=== PATIENT | male | born 1955 | race Caucasian/White ===

== ENCOUNTER 2017-03-31 14:01 | Emergency (ER) | payer BC ==
[2017-03-31] MEDS ORDERED: Ketorolac INJ* 60 MG/2 ML VIAL IM ONE (15:10)
--- NOTE | 2017-03-31 15:21 | ED ---
Neck Pain - HPI Summary HPI Summary: Patient presents with one week of neck pain that began after he worked with some fence posts and on his car over last weekend. He has applied ice and saw his PCP who said he had strained a muscle. He only slept three hours last night so he came in for pain management. He denies functional deficits in his arm, but can have transient tingling on top of his right forearm. No warmth, swelling or fevers. - History of Current Complaint Chief Complaint: EDNeckComplaint Stated Complaint: NECK,SHOULDER RIGHT ARM PAIN Time Seen by Provider: 03/31/17 14:51 Hx Obtained From: Patient Onset/Duration Of Injury/Symptoms: Weeks - 1 Mechanism Of Injury: No Known Trauma Timing: Constant Onset/Duration: Gradual Onset, Started weeks ago - 1, Still Present Severity Initially: Mild Severity Currently: Moderate Pain Intensity: 6 Character: Aching, Spasmotic Aggravating Factors: Position Alleviating Factors: Nothing Associated Signs & Symptoms: Positive: Negative - Allergies/Home Medications Allergies/Adverse Reactions: Allergies Allergy/AdvReac Type Severity Reaction Status Date / Time No Known Allergies Allergy Verified 09/04/12 11:52 PMH/Surg Hx/FS Hx/Imm Hx Cardiovascular History: Reports: Hx Hypertension - TAKING MEDICATION Denies: Hx Pacemaker/ICD Respiratory History: Denies: Hx Asthma, Hx Chronic Obstructive Pulmonary Disease (COPD), Other Respiratory Problems/Disorders Sensory History: Reports: Hx Contacts or Glasses - GLASSES Denies: Hx Hearing Aid Opthamlomology History: Reports: Hx Contacts or Glasses - GLASSES - Surgical History Surgery Procedure, Year, and Place: FULL MOUTH EXTRACTION [facility] Hx Anesthesia Reactions: No Infectious Disease History: No Infectious Disease History: Denies: Traveled Outside the [place] in Last 30 Days - Family History Known Family History: Positive: None - Social History Occupation: Retired Lives: With Family Alcohol Use: None Substance Use Type: Reports: None Hx Tobacco Use: No Smoking Status (MU): Never Smoked Tobacco Review of Systems Positive: Myalgia. Negative: Edema Negative: Bruising Negative: Weakness, Paresthesia, Numbness All Other Systems Reviewed And Are Negative: Yes Physical Exam Triage Information Reviewed: Yes Vital Signs On Initial Exam: Initial Vitals Temp Pulse Resp BP Pulse Ox 97.8 F 81 16 162/83 93 03/31/17 14:03 03/31/17 14:03 03/31/17 14:03 03/31/17 14:03 03/31/17 14:03 Vital Signs Reviewed: Yes Appearance: Positive: Well-Appearing, Pain Distress, Obese Skin: Positive: Warm, Skin Color Reflects Adequate Perfusion, Dry, Soft Head/Face: Positive: Normal Head/Face Inspection Eyes: Positive: EOMI, [place], Conjunctiva Clear ENT: Positive: Hearing grossly normal Neck: Positive: Supple, No Lymphadenopathy, Tenderness @ - right sternocleidomastoid muscle Respiratory/Lung Sounds: Positive: Breath Sounds Present Cardiovascular: Positive: RRR Musculoskeletal: Positive: Strength/ROM Intact, Pain @ - TTP right sternocladomastoid muscle Neurological: Positive: Sensory/Motor Intact, Alert, Oriented to Person Place, Time, CN Intact II-III, NV Bundle Intact Distally Psychiatric: Positive: Affect/Mood Appropriate AVPU Assessment: Alert Diagnostics - Vital Signs Vital Signs Temp Pulse Resp BP Pulse Ox 03/31/17 14:03 97.8 F 81 16 162/83 93 - Laboratory Lab Statement: Any lab studies that have been ordered have been reviewed, and results considered in the medical decision making process. Neck Course/Dx - Diagnoses Differential Dx/HQI/PQRI: Positive: Adenitis, Cervical Fracture, Sprain, Strain , Torticollis, Trauma Provider Diagnoses: Neck muscle strain Discharge - Discharge Plan Condition: Stable Disposition: HOME Prescriptions: Cyclobenzaprine TAB* [Flexeril 10 MG TAB*] 10 mg PO TID PRN #15 tab PRN Reason: Pain Patient Education Materials: Neck Pain (ED) Referrals: Gwyn Watkins MD [Primary Care Provider] - Additional Instructions: Please use the muscle relaxer as needed in combination with Ibuprofen 600mg three times daily with meals for the next 3-5 days. Apply heat to your neck and rest. Follow-up with your primary care provider if symptoms do not begin to improve in the next 5-7 days. Return to the emergency department if symptoms worsen.
[2017-03-31 15:33] VITALS: BP 160/73
== END 2017-03-31 15:33 | disposition home or self-care (01) ==
LOC: ED 14:01
DX: S13.4XXA Sprain of ligaments of cervical spine, initial encounter (principal); X58.XXXA Exposure to other specified factors, initial encounter; Y92.9 Unspecified place or not applicable; I10 Essential (primary) hypertension
CPT/HCPCS: 96372; 99281; J1885

== ENCOUNTER 2018-11-29 10:00 | Emergency (ER) | payer MEDICARE ==
--- NOTE | 2018-11-29 11:34 | ED ---
Lower Extremity - HPI Summary HPI Summary: A 63 y/o male presents to [facility] with a chief complaint of right leg pain which has been worsening since 10/25/19. Per triage note, Pt was working outside on Tuesday kneeling on a piece of wood with Right leg, pt states that the pain in right leg/rucker/knee has steadily increased since Tuesday and now it feels like there is something hard in his left knee when he kneels down. The patient reports he was kneeling for about 30 mins to cover something up before the snowstorm. He denies any ankle or hip pain, fever, chills, erythema (eyes), sore throat, chest pain, shortness of breath, cough, abdominal pain, vomiting, nausea, dysuria, hematuria, myalgia, and dizziness. He reports taking aspirin. He denies psoriasis but has a rash on arms and legs which doesnt bother him. He reports that he is able to walk around fine. He denies any fall. He takes aspirin and currently rates his pain as a 3/10 but his pain worsens at night. The patient reports some swelling below his knees and reports that he has had fluid below his knees before. - History of Current Complaint Chief Complaint: EDExtremityLower Stated Complaint: RIGHT LEG PAIN Time Seen by Provider: 11/29/18 10:38 Hx Obtained From: Patient Mechanism Of Injury: Other - kneeling on plywood Onset of Pain: Days Onset/Duration: Still Present Severity Initially: Moderate Severity Currently: Moderate Pain Intensity: 3 Pain Scale Used: 0-10 Numeric Timing: Constant, Lasting Days Location: Is Discrete @ - right leg Associated Signs And Symptoms: Positive: Redness. Negative: Fever Aggravating Factor(s): Nothing Alleviating Factor(s): Nothing - Allergies/Home Medications Allergies/Adverse Reactions: Allergies Allergy/AdvReac Type Severity Reaction Status Date / Time No Known Allergies Allergy Verified 11/29/18 10:47 Home Medications: Home Medications Amlodipine Besylate [Norvasc] 10 mg PO DAILY 11/29/18 [History Confirmed ] Dapagliflozin 10 mg Tab (Nf) [Farxiga] 10 mg PO DAILY 11/29/18 [History Confirmed 11/29/18] Dutasteride 1 cap PO DAILY 11/29/18 [History Confirmed 11/29/18] Rosuvastatin Calcium 20 mg PO BEDTIME 11/29/18 [History Confirmed 11/29/18] PMH/Surg Hx/FS Hx/Imm Hx Cardiovascular History: Reports: Hx Hypertension - TAKING MEDICATION Denies: Hx Pacemaker/ICD Respiratory History: Denies: Hx Asthma, Hx Chronic Obstructive Pulmonary Disease (COPD), Other Respiratory Problems/Disorders Sensory History: Reports: Hx Contacts or Glasses - GLASSES Denies: Hx Hearing Aid Opthamlomology History: Reports: Hx Contacts or Glasses - GLASSES - Surgical History Surgery Procedure, Year, and Place: FULL MOUTH EXTRACTION [facility] Hx Anesthesia Reactions: No Infectious Disease History: No Infectious Disease History: Denies: Traveled Outside the [place] in Last 30 Days - Family History Known Family History: Negative: Cardiac Disease, Hypertension, Diabetes - Social History Alcohol Use: None Substance Use Type: Reports: None Hx Tobacco Use: No Smoking Status (MU): Never Smoked Tobacco Review of Systems Negative: Fever, Chills Negative: Erythema Negative: Sore Throat Negative: Chest Pain Negative: Shortness Of Breath, Cough Negative: Abdominal Pain, Vomiting, Nausea Negative: dysuria, hematuria Positive: Myalgia - right leg pain, Edema Positive: Rash Neurological: Negative - dizziness All Other Systems Reviewed And Are Negative: Yes Physical Exam - Summary Physical Exam Summary: Constitutional: Well-developed, Well-nourished, Alert. (-) Distressed Skin: Warm, Dry HENT: Normocephalic; Atraumatic Eyes: Conjunctiva normal Neck: Musculoskeletal ROM normal neck. (-) JVD, (-) Stridor, (-) Tracheal deviation Cardio: Rhythm regular, rate normal, Heart sounds normal; Intact distal pulses; The pedal pulses are 2+ and symmetric. Radial pulses are 2+ and symmetric. (-) Murmur Pulmonary/Chest wall: Effort normal. (-) Respiratory distress, (-) Wheezes, (-) Rales Abd: Soft, (-) epigastric tenderness, (-) Distension, (-) Guarding, (-) Rebound Musculoskeletal: mild infrapatellar edema, no induration fluctuant edema, full ROM no bony tenderness Lymph: (-) Cervical adenopathy Neuro: Alert, Oriented x3 Psych: Mood and affect Normal Triage Information Reviewed: Yes Vital Signs On Initial Exam: Initial Vitals Temp Pulse Resp BP Pulse Ox 98.4 F 95 22 164/90 95 11/29/18 10:02 11/29/18 10:02 11/29/18 10:02 11/29/18 10:02 11/29/18 10:02 Vital Signs Reviewed: Yes Diagnostics - Vital Signs Vital Signs Temp Pulse Resp BP Pulse Ox 11/29/18 10:02 98.4 F 95 22 164/90 95 - Laboratory Lab Statement: Any lab studies that have been ordered have been reviewed, and results considered in the medical decision making process. - Radiology knee x-ray Radiology Interpretation Completed By: Radiologist Summary of Radiographic Findings: Soft tissue swelling superficial to the patella and infrapatellar tendon. ED physician has reviewed this imaging report. Lower Extremity Course/Dx - Course Course Of Treatment: A 63 y/o male presents to [facility] with a chief complaint of right leg pain which has been worsening since 10/25/19 after kneeling on a piece of plywood. The physical exam revealed mild infrapatellar edema, no induration fluctuant edema, full ROM no bony tenderness. Knee x-ray impression: Soft tissue swelling superficial to the patella and infrapatellar tendon. In the ED course the patient was given Tylenol PO. The patient will be discharged with a prescription for Naprosyn. The patient was instucted to return to the ED for any changing or worsening symptoms. The patient is agreeable with this plan. - Diagnoses Provider Diagnoses: Knee contusion Discharge - Sign-Out/Discharge Documenting (check all that apply): Patient Departure - DC - Discharge Plan Condition: Stable Disposition: HOME Prescriptions: Naproxen TAB* [Naprosyn 250 mg TAB*] 500 mg PO Q8H PRN #30 tab PRN Reason: Pain - Moderate To Severe Referrals: Gwyn Watkins MD [Primary Care Provider] - (1-2 days) Additional Instructions: RETURN TO THE EMERGENCY DEPARTMENT FOR CHANGING OR WORSENING SYMPTOMS - Billing Disposition and Condition Condition: STABLE Disposition: Home - Attestation Statements Document Initiated by Gopalibe: Yes Documenting Scribe: Ralph Grider Provider For Whom Alejandra is Documenting (Include Credential): Kp Costa MD Scribe Attestation: Ralph Hurley scribed for Kp Costa MD on 11/29/18 at 2043. Scribe Documentation Reviewed: Yes Provider Attestation: The documentation as recorded by the Ralph jerry accurately reflects the service I personally performed and the decisions made by me, Kp Costa MD Status of Scribe Document: Viewed
[2018-11-29] MEDS ORDERED: Acetaminophen TAB* 325 MG PO ONE (11:42)
[2018-11-29 11:53] VITALS: BP 123/83
== END 2018-11-29 11:52 | disposition home or self-care (01) ==
LOC: ED 10:00
DX: S80.01XA Contusion of right knee, initial encounter (principal); I10 Essential (primary) hypertension; X58.XXXA Exposure to other specified factors, initial encounter; Y92.9 Unspecified place or not applicable
CPT/HCPCS: 99282; A9270-GY

== ENCOUNTER 2021-08-04 07:30 | Observation (INO) ==
[~2021-08-04 07:30] MED LIST: Buffered Lidocaine 1% SYRIN 1 ml INTRADERM ONE; DiMENhydriNATE IV 50 mg/ml 1 ml VIAL IV PUSH ONE; HYDROcodone/ACETAMIN 5/325 mg TAB PO PRN; Lactated Ringers 1000 ml BAG 1,000 ML IV SCH; Metoclopramide 5 MG/ML VIAL (10 mg) IV PRN; Naloxone 0.4 mg VIAL 0.4 mg/ml 1 ml VIAL IV PRN; Ondansetron 4 mg VIAL 2 MG/ML 2 ml VIAL IV PRN; ROPIVACAINE 5 MG/ML 30 ML BTL (0.5%) ONE; fentaNYL 100 mcg/2 ml 50 MCG/ML VIAL IV PRN
[2021-08-04] MEDS ORDERED: DiMENhydriNATE IV 50 mg/ml 1 ml VIAL ONE (09:24)
[2021-08-04] MEDS ORDERED: ceFAZolin 2 GM in NS PREMIX 2 GM/100 ML BAG IVPB ONE (09:24)
[2021-08-04] MEDS ORDERED: ceFAZolin 1 GM ADVAN 1 GM ADDV.VIAL IVPB ONE (09:24)
[2021-08-04] MEDS ORDERED: Buffered Lidocaine 1% SYRIN 1 ml INTRADERM ONE (09:24)
[2021-08-04] MEDS ORDERED: fentaNYL 100 mcg/2 ml 50 MCG/ML VIAL ONE (09:26)
[2021-08-04] MEDS ORDERED: Midazolam 2 mg/2 ml VIAL 1 mg/ml 2 ml VIAL (2 mg) ONE (09:26)
[2021-08-04] MEDS ORDERED: Lidocaine 2% PF 5 ML VIAL ONE (09:35)
[2021-08-04] MEDS ORDERED: Phenylephrine IV 10 MG/ML 1 ml VIAL ONE ×2 (09:35→09:38)
[2021-08-04] MEDS ORDERED: Bupivacaine 0.5% SDV PF 30ML VIAL ONE (10:51)
[2021-08-04] MEDS ORDERED: Propofol 10 MG/ML 20 ML BTL ONE ×2 (12:53→13:56)
[2021-08-04] MEDS ORDERED: Lactulose 30 ml UDC PO PRN (12:59)
[2021-08-04] MEDS ORDERED: Morphine 2 MG/ML SYRINGE IV PRN (12:59)
[2021-08-04] MEDS ORDERED: diPHENhydraMINE IV 50 MG/ML 1 ml VIAL (BENADRYL) IV PRN (12:59)
[2021-08-04] MEDS ORDERED: Ondansetron 4 mg VIAL 2 MG/ML 2 ml VIAL IV PRN (12:59)
[2021-08-04] MEDS ORDERED: diPHENhydraMINE 25 mg TAB PO PRN (12:59)
[2021-08-04] MEDS ORDERED: Magnesium Hydroxide LIQ 30 ML UDC PO PRN (12:59)
[2021-08-04] MEDS ORDERED: Ondansetron ODT 4 mg TAB 4 MG TAB PO PRN (12:59)
[2021-08-04] MEDS ORDERED: Lactated Ringers 1000 ml BAG 1,000 ML IV SCH (13:00)
[2021-08-04] MEDS ORDERED: HYDROcodone/ACETAMIN 5/325 mg TAB ONE (15:12)
[2021-08-04] MEDS ORDERED: Dextrose 50% Syringe 50 ml 25 GM/50 ML SYRINGE IV PUSH PRN (17:49)
[2021-08-04] MEDS: Magnesium Hydroxide LIQ 30 ML UDC PO SCH (21:28)
[2021-08-04] MEDS: ceFAZolin 1 GM ADVAN 1 GM in NS 0.9% 50 ML 50 ML IVPB SCH (21:29)
[2021-08-05] MEDS: ceFAZolin 1 GM ADVAN 1 GM in NS 0.9% 50 ML 50 ML IVPB SCH ×2 (06:20→13:43)
[2021-08-05 06:28] LABS: Hematocrit 39 % (42-52); Hemoglobin 13.5 g/dL (14.0-18.0); Mean Platelet Volume 8.2 fL (7.4-10.4); Platelet Count 211 10^3/uL (150-450)
[2021-08-05 06:47] LABS: Calcium 9.2 mg/dL (8.6-10.3); EGFR African American 96.6 (>60); EGFR Non-African American 79.8 (>60); Potassium 4.9 mmol/L (3.5-5.0)
[2021-08-05] MEDS ORDERED: Vitamin THERAPEUTIC TAB PO SCH (09:00)
[2021-08-05] MEDS ORDERED: Lisinopril/HCTZ 20/12.5 TB(NF) PO SCH (09:00)
[2021-08-05] MEDS ORDERED: Flu vaccine *QUAD* 2021-22* 0.5 ML SYRINGE IM ONE (09:00)
[2021-08-05] MEDS: Magnesium Hydroxide LIQ 30 ML UDC PO SCH (09:17)
[2021-08-05 11:18] VITALS: BP 122/66
[2021-08-06] MEDS ORDERED: NF: Dulaglutide (NF) 1.5 MG/0.5 ML SYRINGE SUBCUT SCH (13:03)
== END 2021-08-05 17:51 | disposition home or self-care (01) ==
LOC: INTOOBSV 08:57 → AA 08:57 → SSU 16:19
PROVIDERS: ADMIT Orthopaedic Surgery Adult Reconstructive Orthopaedic Surgery; ATTEND Orthopaedic Surgery Adult Reconstructive Orthopaedic Surgery